=== PATIENT | male | born 1945 | race Caucasian/White ===

== ENCOUNTER 2019-09-17 17:47 | Emergency (ER) | payer MEDICARE ==
[2019-09-17 18:14] LABS: BASOPHILS # (AUTO) 0.1 10^3/uL (0.0-0.1); BASOPHILS % (AUTO) 0.5 %; EOSINOPHILS # (AUTO) 0.1 10^3/uL (0.0-0.7); EOSINOPHILS % (AUTO) 0.9 %; LYMPHOCYTES # (AUTO) 1.1 10^3/uL (1.5-3.5); LYMPHOCYTES % (AUTO) 9.1 %; MEAN CORPUSCULAR HEMOGLOBIN 30.4 pg (27.0-31.0); MEAN CORPUSCULAR HGB CONC 33.6 g/dL (32.0-36.0); MEAN CORPUSCULAR VOLUME 90.5 fL (80.0-94.0); MEAN PLATELET VOLUME 8.8 fL (7.4-11.4); MONOCYTES # (AUTO) 0.7 10^3/uL (0.0-1.0); MONOCYTES % (AUTO) 5.6 %; NEUTROPHILS # (AUTO) 10.2 10^3/uL (1.5-6.6); NEUTROPHILS % (AUTO) 83.2 %; PLT - PLATELET COUNT 227 10^3/uL (130-450); RED BLOOD COUNT 5.26 10^6/uL (4.70-6.10); RED CELL DISTRIBUTION WIDTH 12.9 % (12.0-15.0); WHITE BLOOD COUNT 12.3 x10^3/uL (4.8-10.8)
[2019-09-17 18:21] LABS: BILIRUBIN,URINE NEGATIVE (NEGATIVE); GLUCOSE, URINE (UA) NEGATIVE (NEGATIVE); KETONES,URINE (UA) NEGATIVE (NEGATIVE); LEUKOCYTE ESTERASE, URINE NEGATIVE (NEGATIVE); NITRITE,URINE NEGATIVE (NEGATIVE); OCCULT BLOOD,URINE LARGE (NEGATIVE); PROTEIN,URINE TRACE mg/dL (NEGATIVE); UROBILINOGEN,URINE 0.2 (NORMAL) E.U./dL (NORMAL)
[2019-09-17] MEDS ORDERED: SODIUM CHLORIDE 0.9% 1,000 ML IV ONE (18:21)
[2019-09-17] MEDS ORDERED: KETOROLAC 30 MG/ML VIAL IVP STA (18:21)
[2019-09-17 18:24] LABS: CLARITY,URINE CLEAR (CLEAR)
[2019-09-17 18:29] LABS: ALBUMIN/GLOBULIN RATIO 1.7 (1.0-2.2); BILIRUBIN,TOTAL 1.2 mg/dL (0.2-1.0); CALCIUM 8.9 mg/dL (8.5-10.3)
[2019-09-17 18:30] LABS: BACTERIA,URINE None Seen /HPF (None Seen); MUCUS,URINE Few Strands; SQUAMOUS EPITHELIAL CELL,UR NONE SEEN (<= Few)
[2019-09-17] MEDS ORDERED: IOVERSOL 320 100 ML VIAL IVP ONE ×2 (18:44→19:04)
[2019-09-17 20:02] VITALS: BP 172/92
--- NOTE | 2019-09-17 20:04 | CT Report ---
Reason: LLQ abd pain Procedure Date: 09/17/2019 Accession Number: [id number] / [id number] Procedure: CT - Abdomen/Pelvis W CPT Code: Final Report FULL RESULT: EXAM: CT ABDOMEN AND PELVIS EXAM DATE: 09/17/2019 07:03 PM. CLINICAL HISTORY: Left lower quadrant abdominal pain. COMPARISONS: ABDOMEN LIMITED 04/09/2016 2:02 AM. TECHNIQUE: Routine helical CT imaging was performed through the abdomen and pelvis. IV contrast: Optiray 320 90 mL. Enteric contrast: No. Reconstructions: Coronal and sagittal. In accordance with CT protocol optimization, one or more of the following dose reduction techniques were utilized for this exam: automated exposure control, adjustment of mA and/or KV based on patient size, or use of iterative reconstructive technique. FINDINGS: Lung Bases: Small hiatal hernia. Minimal dependent atelectasis. Liver: Multiple subcentimeter low-attenuation lesions throughout the liver which are too small to characterize likely represents cysts. Gallbladder/Bile Ducts: Unremarkable. Spleen: Normal. Pancreas: Fatty infiltration of the pancreas. Adrenal Glands: Normal. Kidneys: Right kidney unremarkable. Two nonobstructing stones in the lower pole of the left kidney with the larger stone measuring 9 x 5 mm in the axial plane. Obstructing stone in the proximal left ureter located approximately 4 cm downstream from the left ureteropelvic junction and measuring approximately 4 x 6 mm in the axial and craniocaudal dimensions respectively. This is associated with mild left-sided hydronephrosis. Peritoneal Cavity/Bowel: Normal caliber of the small bowel without evidence of obstruction. No focal bowel wall thickening or inflammation. Sigmoid colon diverticulosis without CT evidence of acute diverticulitis. Appendix: The appendix is well visualized and normal. Pelvic Organs: Diffuse urinary bladder wall thickening. Brachytherapy changes at the level of the prostate. Vasculature: No aneurysms or other significant abnormality. Bones: No significant abnormality. Other: Fat-containing right inguinal hernia. IMPRESSION: 1. Obstructing stone in the proximal left ureter approximately 4 cm downstream from the left ureteropelvic junction. The stone measures 4 x 6 mm in the axial and craniocaudal dimensions respectively and is associated with mild left-sided hydronephrosis. 2. Nonobstructing stones in the lower pole of the left kidney with the larger stone measuring 9 x 5 mm in the axial plane. 3. Multiple subcentimeter low-attenuation lesions throughout the liver which are too small to characterize likely represents cysts. 4. Sigmoid colon diverticulosis without CT evidence of acute diverticulitis. 5. Diffuse urinary bladder wall thickening which can be seen with cystitis. 6. Brachytherapy changes in the prostate region. 7. Small hiatal hernia. RADIA
--- NOTE | 2019-09-17 20:10 | ED Physician Documentation ---
PD HPI ABD PAIN - Stated complaint Stated Complaint: LOW LEFT AB PX - Chief complaint Chief Complaint: Abd Pain - History obtained from History obtained from: Patient, Family - History of Present Illness Timing - onset: How many hours ago (3) Timing - duration: Hours (3) Timing - details: Abrupt onset Pain level max: 8 Pain level now: 6 Quality: Aching, Pain Location: Other (L flank) Radiation: Other (non-radiating) Associated symptoms: No: Fever Similar symptoms before: Diagnosis (kidney stones) Recently seen: Not recently seen Review of Systems Constitutional: denies: Fever, Chills Throat: denies: Sore throat GI: denies: Vomiting, Diarrhea Skin: denies: Rash Musculoskeletal: denies: Neck pain, Back pain Neurologic: denies: Headache PD PAST MEDICAL HISTORY - Past Medical History Past Medical History: Yes Cardiovascular: High cholesterol Respiratory: COPD Neuro: None Endocrine/Autoimmune: None GI: Cholelithiasis : None HEENT: Chronic vision loss, Chronic hearing loss Psych: None Musculoskeletal: None Derm: None - Past Surgical History Past Surgical History: Yes General: Cholecystectomy - Present Medications Home Medications: Ambulatory Orders Medication Instructions Recorded Confirmed Albuterol Sulfate [Proair Hfa] 04/09/16 Simvastatin 04/09/16 Hydrocodone/Acetaminophen 1 - 2 each PO Q6H PRN #14 tablet 09/17/19 [Hydrocodon-Acetaminophen 5-325] Ondansetron Odt [Zofran] 4 mg TL Q6H PRN #10 tablet 09/17/19 Tamsulosin [Flomax] 0.4 mg PO DAILY #20 capsule 09/17/19 - Allergies Allergies/Adverse Reactions: Allergies Allergy/AdvReac Type Severity Reaction Status Date / Time No Known Drug Allergies Allergy Verified 04/09/16 13:54 - Social History Does the pt smoke?: No Smoking Status: Never smoker Does the pt drink ETOH?: No Does the pt have substance abuse?: No - Immunizations Immunizations are current?: Yes - POLST Patient has POLST: No PD ED PE NORMAL - Vitals Vital signs reviewed: Yes - General General: Alert and oriented X 3, No acute distress, Well developed/nourished - HEENT HEENT: PERRL, Moist mucous membranes - Neck Neck: Supple, no meningeal sign - Cardiac Cardiac: RRR, Strong equal pulses - Respiratory Respiratory: No respiratory distress, Clear bilaterally - Abdomen Abdomen: Soft, Non distended, Other (Tender to palpation left lower quadrant. No peritoneal signs.) - Back Back: No CVA TTP - Derm Derm: Warm and dry - Extremities Extremities: No edema - Neuro Neuro: Alert and oriented X 3 - Psych Psych: Normal mood, Normal affect Results - Vitals Vitals: Vital Signs - 24 hr 09/17/19 09/17/19 17:52 20:02 Temperature 36.4 C L 37 C Heart Rate 75 84 Respiratory 14 16 Rate Blood Pressure 153/118 H 172/92 H O2 Saturation 97 93 Oxygen O2 Source Room air - Labs Labs: Laboratory Tests 09/17/19 09/17/19 09/17/19 18:08 18:08 18:10 WBC 12.3 H RBC 5.26 Hgb 16.0 Hct 47.6 MCV 90.5 MCH 30.4 MCHC 33.6 RDW 12.9 Plt Count 227 MPV 8.8 Neut # (Auto) 10.2 H Lymph # (Auto) 1.1 L [place] # (Auto) 0.7 Eos # (Auto) 0.1 Baso # (Auto) 0.1 Absolute Nucleated RBC 0.00 Nucleated RBC % 0.0 Sodium 140 Potassium 3.9 Chloride 103 Carbon Dioxide 28 Anion Gap 9.0 BUN 20 Creatinine 1.0 Estimated GFR (MDRD) 73 L Glucose 124 H Calcium 8.9 Total Bilirubin 1.2 H AST 23 ALT 26 Alkaline Phosphatase 56 Total Protein 8.0 Albumin 5.0 Globulin 3.0 Albumin/Globulin Ratio 1.7 Lipase 24 Urine Color YELLOW Urine Clarity CLEAR Urine pH 5.0 Ur Specific [place] >=1.030 H Urine Protein TRACE Urine Glucose (UA) NEGATIVE Urine Ketones NEGATIVE Urine Occult Blood LARGE H Urine Nitrite NEGATIVE Urine Bilirubin NEGATIVE Urine Urobilinogen 0.2 (NORMAL) Ur Leukocyte Esterase NEGATIVE Urine RBC 11-25 H Urine WBC 4-5 Ur Squamous Epith Cells NONE SEEN Urine Bacteria None Seen Urine Mucus Few Strands Ur Microscopic Review INDICATED Urine Culture Comments NOT INDICATED - Rads (name of study) CT abdomen pelvis Radiology: Prelim report reviewed, EMP read contemporaneously, See rad report (1. Obstructing stone in the proximal left ureter approximately 4 cm downstream from the left ureteropelvic junction. The stone measures 4 x 6 mm in the axial and craniocaudal dimensions respectively and is associated with mild left-sided hydronephrosis. 2. Nonobstructing stones in the lower pole of the left kidney with the larger stone measuring 9 x 5 mm in the axial plane. 3. Multiple subcentimeter low-attenuation lesions throughout the liver which are too small to characterize likely represents cysts. 4. Sigmoid colon diverticulosis without CT evidence of acute diverticulitis. 5. Diffuse urinary bladder wall thickening which can be seen with cystitis. 6. Brachytherapy changes in the prostate region. 7. Small hiatal hernia. ) PD MEDICAL DECISION MAKING - ED course Complexity details: reviewed results, re-evaluated patient, considered differential, d/w patient, d/w family ED course: Pain well controlled in the emergency department. Patient is well-appearing, nontoxic. Afebrile. Will place on Flomax and pain medication for home. Patient has a left-sided ureteral stone. Patient counseled regarding signs and symptoms for which I believe and urgent re-evaluation would be necessary. Patient with good understanding of and agreement to plan and is comfortable going home at this time This document was made in part using voice recognition software. While efforts are made to proofread this document, sound alike and grammatical errors may occur. Departure - Departure Disposition: Home, Self Care Clinical Impression: Left ureteral stone Condition: Good Instructions: ED Stone Renal W Colic Follow-Up: Provider,Other [Primary Care Provider] - Within 1 week Prescriptions: Hydrocodone/Acetaminophen [Hydrocodon-Acetaminophen 5-325] 1 - 2 each PO Q6H PRN #14 tablet PRN Reason: pain Ondansetron Odt [Zofran] 4 mg TL Q6H PRN #10 tablet PRN Reason: Nausea / Vomiting Tamsulosin [Flomax] 0.4 mg PO DAILY #20 capsule Comments: Drink plenty of water at home. You can use Motrin or Aleve for pain as well. Follow-up with your doctor for further care. You may want to see a urologist as well. Do not drink alcohol or drive while on narcotic pain medicine. Note that many narcotic pain relievers also contain tylenol/acetaminophen. Please ensure that your total dose of acetaminophen from all sources does not exceed 3 grams (3000mg) per day. You may constipated on this medication, take a stool softener such as "Colace" twice a day while you are on it. Also recommend a ulza-lec-rypebvm laxative such as senna or MiraLAX any day that you do not have a bowel movement. If you received narcotic pain medication in the emergency department, do not drive or operate machinery for the next 24 hours. 1. Obstructing stone in the proximal left ureter approximately 4 cm downstream from the left ureteropelvic junction. The stone measures 4 x 6 mm in the axial and craniocaudal dimensions respectively and is associated with mild left-sided hydronephrosis. 2. Nonobstructing stones in the lower pole of the left kidney with the larger stone measuring 9 x 5 mm in the axial plane. 3. Multiple subcentimeter low-attenuation lesions throughout the liver which are too small to characterize likely represents cysts. 4. Sigmoid colon diverticulosis without CT evidence of acute diverticulitis. 5. Diffuse urinary bladder wall thickening which can be seen with cystitis. 6. Brachytherapy changes in the prostate region. 7. Small hiatal hernia. Discharge Date/Time: 09/17/19 20:36
== END 2019-09-17 20:36 | disposition home or self-care (01) ==
LOC: ED 17:47
DX: N13.2 Hydronephrosis with renal and ureteral calculous obstruction (principal); K76.9 Liver disease, unspecified; K44.9 Diaphragmatic hernia without obstruction or gangrene
CPT/HCPCS: 36415; 74177; 80053; 81001; 83690; 85025; 96374; 99284; Q9967; 81003; 87086

== ENCOUNTER 2022-05-13 07:11 | Outpatient (CLI) | payer MEDICARE, OTHER ==
[2022-05-13 14:21] LABS: BASOPHILS % (AUTO) 0.6 %; EOSINOPHILS # (AUTO) 0.2 10^3/uL (0.0-0.7); EOSINOPHILS % (AUTO) 3.7 %; HCT - HEMATOCRIT 44.6 % (42.0-52.0); LYMPHOCYTES # (AUTO) 1.1 10^3/uL (1.5-3.5); LYMPHOCYTES % (AUTO) 16.1 %; MEAN CORPUSCULAR HEMOGLOBIN 31.4 pg (27.0-31.0); MEAN CORPUSCULAR HGB CONC 33.6 g/dL (32.0-36.0); MEAN CORPUSCULAR VOLUME 93.5 fL (80.0-94.0); MEAN PLATELET VOLUME 9.6 fL (7.4-11.4); MONOCYTES # (AUTO) 0.5 10^3/uL (0.0-1.0); MONOCYTES % (AUTO) 7.2 %; NEUTROPHILS # (AUTO) 4.7 10^3/uL (1.5-6.6); NEUTROPHILS % (AUTO) 72.1 %; PLT - PLATELET COUNT 223 10^3/uL (130-450); RED BLOOD COUNT 4.77 10^6/uL (4.70-6.10); RED CELL DISTRIBUTION WIDTH 13.1 % (12.0-15.0); WHITE BLOOD COUNT 6.5 x10^3/uL (4.8-10.8)
[2022-05-13 15:01] LABS: ALBUMIN 4.3 g/dL (3.2-5.5); ALBUMIN/GLOBULIN RATIO 1.5 (1.0-2.2); BILIRUBIN,TOTAL 1.3 mg/dL (0.2-1.0); CALCIUM 9.5 mg/dL (8.5-10.3); CREATININE 0.9 mg/dL (0.6-1.2); TOTAL PROTEIN 7.2 g/dL (6.7-8.2)
== END 2022-05-13 07:12 | disposition home or self-care (01) ==
LOC: LAB.S 07:11
PROVIDERS: ATTEND Nurse Practitioner Family
DX: Z86.010 Personal history of colon polyps (principal)
CPT/HCPCS: 36415; 80053; 85025

== ENCOUNTER 2024-01-03 11:20 | Emergency (ER) | payer OTHER ==
[2024-01-03 11:38] VITALS: BP 130/90; O2SAT 96
--- NOTE | 2024-01-03 11:55 | ED Physician Documentation ---
PD HPI UPPER EXT INJURY - Stated complaint Stated Complaint: WATER ON R ELBOW - Chief complaint Chief Complaint: Ext Problem - History obtained from History obtained from: Patient (He hit his elbow 3 weeks ago and it has been swelling really not bothering him though. 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 and encouraged him to go to the hospital.) PD PAST MEDICAL HISTORY - Past Medical History Past Medical History: Yes Cardiovascular: High cholesterol Respiratory: COPD Neuro: None Endocrine/Autoimmune: None GI: Cholelithiasis : None HEENT: Chronic vision loss, Chronic hearing loss Psych: None Musculoskeletal: None Derm: None - Past Surgical History Past Surgical History: Yes General: Cholecystectomy - Present Medications Home Medications: Ambulatory Orders Medication Instructions Recorded Confirmed Albuterol Sulfate [Proair Hfa] 04/09/16 Atorvastatin [Lipitor] 10 mg DAILY 03/28/20 03/28/20 Budesonide/Formoterol Fumarate 0 mg DAILY 03/28/20 03/28/20 [Symbicort 160-4.5 Mcg Inhaler] Neomycin/Polymyx/Hc Otic Drops 4 drops OT TID 7 Days #1 bottle 03/28/20 [Cortisporin Ear Susp] - Allergies Allergies/Adverse Reactions: Allergies Allergy/AdvReac Type Severity Reaction Status Date / Time No Known Drug Allergies Allergy Verified 01/03/24 11:28 - Social History Does the pt smoke?: No Smoking Status: Never smoker Does the pt drink ETOH?: No Does the pt have substance abuse?: No - Immunizations Immunizations are current?: Yes - POLST Patient has POLST: No PD ED PE NORMAL - Vitals Vital signs reviewed: Yes - General General: Alert and oriented X 3, No acute distress - Extremities Extremities: Other (He has nontender fluctuance noncellulitic olecranon bursitis on the right with full range of motion and no bony tenderness.) - Neuro Neuro: Alert and oriented X 3, Normal speech Results - Vitals Vitals: Vital Signs - 24 hr 01/03/24 11:29 Temperature 36.8 C Heart Rate 100 Respiratory 16 Rate Blood Pressure 130/90 H O2 Saturation 96 Oxygen O2 Source Room air PD Medical Decision Making - ED course ED course: He has nonseptic olecranon traumatic bursitis. No evidence of fracture. Full range of motion. No evidence of infection. We discussed needle aspiration, but I did not recommend it since the patient is minimally symptomatic and would put him at risk for infection. Departure - Departure Disposition: 01 Home, Self Care Clinical Impression: Olecranon bursitis, right elbow Condition: Good Record reviewed to determine appropriate education?: Yes Instructions: ED Bursitis Elbow Olecranon Follow-Up: [facility]opedic Care [Provider Group] Comments: You were seen today for right olecranon bursitis. This is a condition where some fluid is in the bursa over the elbow. It does not look infected and therefore I do not recommend drainage at this point. If it really starts to bother you could you can follow-up with our orthopedic clinic for further evaluation and treatment, but at this point it is okay to just wrap it with a not to tight [place] wrap and try to avoid hitting it on things. Return if worse.
== END 2024-01-03 12:07 | disposition home or self-care (01) ==
LOC: ED 11:20
DX: M70.21 Olecranon bursitis, right elbow (principal); W22.8XXA Striking against or struck by other objects, initial encounter
CPT/HCPCS: 99282; 99283

== ENCOUNTER 2024-06-22 06:17 | Emergency (ER) | payer MEDICARE, OTHER ==
[2024-06-22 07:11] LABS: BASOPHILS # (AUTO) 0.1 10^3/uL (0.0-0.1); BASOPHILS % (AUTO) 0.4 %; EOSINOPHILS # (AUTO) 0.1 10^3/uL (0.0-0.7); EOSINOPHILS % (AUTO) 0.4 %; HCT - HEMATOCRIT 46.4 % (42.0-52.0); HGB - HEMOGLOBIN 16.2 g/dL (14.0-18.0); LYMPHOCYTES % (AUTO) 5.8 %; MEAN CORPUSCULAR HEMOGLOBIN 31.4 pg (27.0-31.0); MEAN CORPUSCULAR HGB CONC 34.9 g/dL (32.0-36.0); MEAN CORPUSCULAR VOLUME 89.9 fL (80.0-94.0); MONOCYTES # (AUTO) 1.1 10^3/uL (0.0-1.0); MONOCYTES % (AUTO) 6.8 %; NEUTROPHILS % (AUTO) 86.2 %; PLT - PLATELET COUNT 240 10^3/uL (130-450); RED BLOOD COUNT 5.16 10^6/uL (4.70-6.10); RED CELL DISTRIBUTION WIDTH 13.1 % (12.0-15.0); WHITE BLOOD COUNT 16.3 x10^3/uL (4.8-10.8)
[2024-06-22 07:16] LABS: ALBUMIN 4.3 g/dL (3.2-5.5); ALBUMIN/GLOBULIN RATIO 1.6 (1.0-2.2); ALKALINE PHOSPHATASE 72 IU/L (42-121); ALT ALANINE AMINOTRANSFERASE 23 IU/L (10-60); AST ASPARTATE AMINOTRANSFERASE 18 IU/L (10-42); BILIRUBIN,TOTAL 1.5 mg/dL (0.2-1.0); BUN - BLOOD UREA NITROGEN 19 mg/dL (6-20); CALCIUM 9.6 mg/dL (8.5-10.3); CARBON DIOXIDE - CO2 26 mmol/L (21-32); CHLORIDE 102 mmol/L (101-111); CREATININE 1.6 mg/dL (0.6-1.3); GFR - MDRD 42 (>89); GLUCOSE 156 mg/dL (74-104); LIPASE < 10 U/L (11-82); SODIUM 136 mmol/L (135-145)
--- NOTE | 2024-06-22 07:25 | ED Physician Documentation ---
PD HPI ABD PAIN - Stated complaint Stated Complaint: LT SIDE PX - Chief complaint Chief Complaint: Abd Pain - History obtained from History obtained from: Patient - History of Present Illness Radiation: Left flank Improved by: No: Eating, Laying still Worsened by: No: Eating, Moving Associated symptoms: Nausea. No: Fever, Vomiting, Diarrhea, Dysuria Similar symptoms before: Diagnosis (He has had couple of kidney stones in the past. One of them was large and required lithotripsy perhaps 20 years ago.) Recently seen: Not recently seen Review of Systems Constitutional: denies: Fever, Chills PD PAST MEDICAL HISTORY - Past Medical History Past Medical History: Yes Cardiovascular: High cholesterol Respiratory: COPD Neuro: None Endocrine/Autoimmune: None GI: Cholelithiasis : Kidney stones HEENT: Chronic vision loss, Chronic hearing loss Psych: None Musculoskeletal: None Derm: None - Past Surgical History Past Surgical History: Yes General: Cholecystectomy - Present Medications Home Medications: Ambulatory Orders Medication Instructions Recorded Confirmed Albuterol Sulfate [Proair Hfa] 2 puffs IH Q4HR PRN 04/09/16 06/22/24 Atorvastatin [Lipitor] 10 mg DAILY 03/28/20 06/22/24 Budesonide/Formoterol Fumarate 0 mg DAILY 03/28/20 06/22/24 [Symbicort 160-4.5 Mcg Inhaler] Neomycin/Polymyx/Hc Otic Drops 4 drops OT TID 7 Days #1 bottle 03/28/20 [Cortisporin Ear Susp] Docusate Sodium 100Mg Capsule 100 mg PO DAILY #15 cap 06/22/24 [Colace 100Mg Capsule] Meloxicam [Mobic] 7.5 mg PO BID 10 Days #20 tablet 06/22/24 Ondansetron Odt [Zofran] 4 mg TL Q6H PRN #10 tablet 06/22/24 oxyCODONE [Roxicodone] 5 mg PO Q4H PRN #20 tablet 06/22/24 - Allergies Allergies/Adverse Reactions: Allergies Allergy/AdvReac Type Severity Reaction Status Date / Time No Known Drug Allergies Allergy Verified 06/22/24 06:35 - Social History Does the pt smoke?: No Smoking Status: Never smoker Does the pt drink ETOH?: No Does the pt have substance abuse?: No - Immunizations Immunizations are current?: Yes - POLST Patient has POLST: No PD ED PE NORMAL - Vitals Vital signs reviewed: Yes - General General: Alert and oriented X 3, Well developed/nourished - Abdomen Abdomen: Soft, Non tender, Non distended - Male Male : Deferred - Back Back: Other (moderate left flank tender to percussion) Results - Vitals Vitals: Vital Signs - 24 hr 06/22/24 06/22/24 06:28 07:40 Temperature 36.9 C Heart Rate 110 H 99 Respiratory 18 16 Rate Blood Pressure 103/65 105/67 O2 Saturation 95 96 Oxygen O2 Source Room air - Labs Labs: Laboratory Tests 06/22/24 06/22/24 06:50 06:50 WBC 16.3 H RBC 5.16 Hgb 16.2 Hct 46.4 MCV 89.9 MCH 31.4 H MCHC 34.9 RDW 13.1 Plt Count 240 MPV 9.0 Neut # (Auto) 14.0 H Lymph # (Auto) 1.0 L [place] # (Auto) 1.1 H Eos # (Auto) 0.1 Baso # (Auto) 0.1 Absolute Nucleated RBC 0.00 Nucleated RBC % 0.0 Sodium 136 Potassium 4.0 Chloride 102 Carbon Dioxide 26 Anion Gap 8.0 BUN 19 Creatinine 1.6 H Estimated GFR (MDRD) 42 L Glucose 156 H Calcium 9.6 Total Bilirubin 1.5 H AST 18 ALT 23 Alkaline Phosphatase 72 Total Protein 7.0 Albumin 4.3 Globulin 2.7 Albumin/Globulin Ratio 1.6 Lipase < 10 L - Rads (name of study) abd/pelvic \CT Relevant Findings:: Prelim report reviewed, EMP independent interpretation of test (large stone at UVJ 1.4 x 1.2 x 0.8 cm. Moderate hydronephrosis. ) PD Medical Decision Making - ED course Complexity details: reviewed results (Kidney stone present on CT scan that is large in the proximal ureter. This is undoubtedly not going to pass on its own. His pain is improved reasonably so could be done outpatient. I talked with Dr. Cooper who can see the patient tomorrow in the office.), considered differential (His pain sounds typical for kidney stone. Other consideration would be vascular or diverticular or kidney infection. Given IV fluids with pain medicines of Toradol and Dilaudid and antiemetic of Zofran. This provided quite a bit of improvement of his pain to just a mild level.), d/w patient, d/w workforce management consultant (Urology) Reviewed Lab Results: Renal function is up a little at 1.6 creatinine. This is above most recent baseline a 1-1/2 years ago. However not too elevated. Departure - Departure Condition: Stable Record reviewed to determine appropriate education?: Yes Instructions: ED Stone Renal W Colic Follow-Up: Sergio Cooper MD [Provider Admit Priv/Credential] - Prescriptions: Docusate Sodium 100Mg Capsule [Colace 100Mg Capsule] 100 mg PO DAILY #15 cap Meloxicam [Mobic] 7.5 mg PO BID 10 Days #20 tablet oxyCODONE [Roxicodone] 5 mg PO Q4H PRN #20 tablet PRN Reason: Pain Ondansetron Odt [Zofran] 4 mg TL Q6H PRN #10 tablet PRN Reason: Nausea / Vomiting Comments: You do have a large kidney stone in the upper ureter on the left. It measures 1.4 x 1.26 cm. This is certainly very unlikely to pass on its own. I did talk with our urologist, Dr. Cooper, who agrees and will expedite seeing you. You should hear from their office today for an appointment for tomorrow with plan to work on eliminating the stone possibly even as early as next week. In the meantime preemptively try to help with the pain with anti-inflammatory and regular Tylenol 500 to 650 mg 4 times a day. To that add ondansetron if needed for nausea and oxycodone every 4-6 hours if needed for pain. Add us daily daily stool softener as well. Activity as tolerated. Continue usual medicines. No aspirin for now. Stay well-hydrated. Return to the ER if uncontrolled pain despite the prescription medication. If you have not heard from Dr. Cooper's office by early afternoon or so then contact them to confirm appointment time for tomorrow. I sent your prescriptions to [facility] in [place]. I am prescribing a short course of narcotic pain medication for you. These are potentially dangerous and addictive medications that should be used carefully. These medications may constipate you. Take an gmfj-lhc-eljafnw stool softener such as docusate twice daily with plenty of water while taking these medications. If you go 24 hours without a bowel movement, take [id number] MiraLAX, per package instructions. Do not drink or drive while taking these medications. If you received narcotic or sedating medications while in the emergency department do not drive for 24 hours. Store this medication in a safe, secure place and out of reach of children. It is a violation of federal law to give or sell this medication to another person or to use in a manner other than prescribed. The ED will not refill narcotic prescriptions, including prescriptions lost or stolen. You can dispose of unwanted medications at the [facility]'s office or at several pharmacies such as [facility]. Forms: PCP List
[2024-06-22] MEDS ORDERED: iohexoL-300 100 ML VIAL ONE (07:47)
[2024-06-22] MEDS: HYDROmorphone 1 MG/ML CARPUJECT IVP STA (07:56)
[2024-06-22] MEDS: KETOROLAC 15 MG/ML VIAL IVP STA (07:57)
[2024-06-22] MEDS: SODIUM CHLORIDE 0.9% 1,000 ML IV STA (07:58)
[2024-06-22] MEDS: iohexoL-300 100 ML VIAL IVP ONE (08:30)
--- NOTE | 2024-06-22 08:43 | CT Report ---
PROCEDURE: Abdomen/Pelvis W INDICATIONS: left lower abd pain x 1 day CONTRAST: Omni 300 100ml TECHNIQUE: After the administration of intravenous contrast, a CT scan of the abdomen and pelvis was performed. Images were recorded and evaluated at appropriate window settings. Reformats: coronal and sagittal. F or radiation dose reduction, the following was used: automated exposure control, adjustment of mA and /or kV according to patient size. COMPARISON: 08/17/2019 FINDINGS: Image quality: Diagnostic. Lower chest: Unremarkable. Liver: No solid mass. Gallbladder: Surgically absent Biliary tree: No intrahepatic or extrahepatic dilation, accounting for age. Spleen: No splenomegaly. Pancreas: Calcifications of chronic pancreatitis. Marked atrophy of the pancreas. The pancreatic duct is obstructed by a pancreatic duct stone and is dilated. Adrenals: No adrenal nodule. Kidneys and ureters: There is a sizable stone obstructing the left UPJ. This stone measures approxima tely 1.4 x 1.2 x 0.8 cm. It results in a delayed nephrogram and moderate hydronephrosis. There are bi lateral nonobstructing renal stones. There is no right hydronephrosis. Stomach, bowel and peritoneum: No gastric or small bowel dilation. No abnormal wall thickening. No pa thologic free fluid. Diverticulosis without evidence of diverticulitis. Lymph nodes: No central or retroperitoneal adenopathy. Vessels: No infrarenal aortic aneurysm. Patent portal vein. PELVIS Reproductive organs: Prostate implant seeds. Prostate is shrunken. Bladder: No abnormal wall thickening, accounting for underdistention. Pelvic lymph nodes: No pelvic adenopathy by size criteria. Bones: No aggressive osseous abnormality. Other: Fat-containing right inguinal hernia. IMPRESSION: 1. A large stone obstructs the left UPJ, resulting in moderate left hydronephrosis and a delayed neph rogram. 2. Bilateral nonobstructing renal stones. 3. There is a stone obstructing the pancreatic duct, which is dilated. The pancreas has undergone mar ked fatty atrophy. There are changes of chronic pancreatitis. 4. Treated prostate carcinoma. 5. Fat-containing right inguinal hernia. 6. Diverticulosis. Reviewed by: Otis Walters MD on 06/22/2024 8:42 AM PDT Approved by: Otis Walters MD on 06/22/2024 8:42 AM PDT Station ID: [id number]
[2024-06-22 09:37] VITALS: BP 154/70; O2SAT 94
== END 2024-06-22 09:27 | disposition home or self-care (01) ==
LOC: ED 06:17
DX: N13.2 Hydronephrosis with renal and ureteral calculous obstruction (principal); Z87.442 Personal history of urinary calculi
CPT/HCPCS: 36415; 74177; 80053; 83690; 85025; 96374; 96375; 99284; J1170; Q9967

== ENCOUNTER 2024-06-26 07:01 | Day surgery (SDC) | payer MEDICARE ==
[2024-06-26] MEDS ORDERED: ceFAZolin 2 GM VIAL ONE (07:38)
[2024-06-26] MEDS: LACTATED RINGERS 1,000 ML IV ONE ×3 (07:50→11:47)
--- NOTE | 2024-06-26 08:19 | ANESTHESIA ---
Pre-Anesthesia VS, & Labs - Diagnosis LEFT KIDNEY STONE - Procedure EXTRACORPOREAL SHOCK WAVE LITHOTRIPSY Vital Signs: Temp Pulse Resp BP Pulse Ox O2 Flow Rate 36.9 C 99 18 157/94 H 99 06/26/24 07:51 06/26/24 07:51 06/26/24 07:51 06/26/24 07:51 06/26/24 07:51 Height: 5 ft 9 in Weight (kg): 94 kg Body Mass Index: 30.6 BMI Classification: Obese - NPO >8 hours Home Medications and Allergies Home Medications: Ambulatory Orders Cholecalciferol (Vitamin D3) [Vitamin D3] 1,250 mcg PO DAILY 06/23/24 Loratadine [Claritin] 10 mg PO PRN PRN 06/23/24 oxyCODONE [Roxicodone] 5 mg PO PRN PRN 06/26/24 Albuterol Sulfate [Proair Hfa] 2 puffs IH Q4HR PRN 04/09/16 Atorvastatin [Lipitor] 10 mg PO DAILY 03/28/20 Budesonide/Formoterol Fumarate [Symbicort 160-4.5 Mcg Inhaler] 0 mg IH DAILY 03/28/20 Cholecalciferol (Vitamin D3) [Vitamin D3] 1,250 mcg PO DAILY 06/23/24 Loratadine [Claritin] 10 mg PO PRN PRN 06/23/24 oxyCODONE [Roxicodone] 5 mg PO PRN PRN 06/26/24 Allergies/Adverse Reactions: Allergies Allergy/AdvReac Type Severity Reaction Status Date / Time No Known Drug Allergies Allergy Verified 06/22/24 06:35 Anes History & Medical History - Anesthetic History Anesthesia Complications: reports: No previous complications Family history of Anesthesia Complications: Denies Family history of Malignant Hyperthermia: Denies - Medical History Cardiovascular: reports: High cholesterol Pulmonary: reports: COPD Gastrointestinal: reports: Cholelithiasis Urinary: reports: Kidney stones Neuro: reports: None Musculoskeletal: reports: None Endocrine/Autoimmune: reports: None Blood Disorders: reports: None Skin: reports: None Smoking Status: Never smoker Psychosocial: reports: No issues indicated (QUIT DRINKING AND SMOKING 20-30+ YEARS AGO) History of Cancer?: Yes (PROSTATE; RESOLVED APROX 20 YEARS AGO; RECEIVED CHEMO AND RADIATION) - Surgical History General: reports: Cholecystectomy Urologic: reports: Prostatic surgery Results - EKG Results EKG Comparison: Reviewed EKG, Normal EKG Exam General: Alert, Oriented x3, Cooperative, No acute distress Dental: WNL Mouth Openin Fingerbreadth Neck Mobility: Normal Mallampati classification: III Thyromental Distance: 4-6 cm Mental/Cognitive Status: Alert/Oriented X3, Normal for patient Cognitive Status: Within normal limits Plan Anesthesia Type: General Consent for Procedure(s) Verified and Reviewed: Yes Code Status: Attempt Resuscitation ASA classification: 3-Severe systemic disease Is this case an emergency?: No
[2024-06-26] MEDS ORDERED: NALOXONE 0.4 MG/ML VIAL IVP PRN (10:29)
[2024-06-26] MEDS ORDERED: ePHEDrine 50 MG/ML VIAL IVP PRN (10:29)
[2024-06-26] MEDS ORDERED: fentaNYL 100 MCG/2 ML VIAL IVP PRN (10:29)
[2024-06-26] MEDS ORDERED: METOCLOPRAMIDE 10 MG/2 ML VIAL IVP PRN (10:29)
[2024-06-26] MEDS ORDERED: MORPHINE 2 MG/ML CARPUJECT IVP PRN (10:29)
[2024-06-26] MEDS ORDERED: HYDROmorphone 0.5 MG/0.5 ML SYRINGE IVP PRN (10:29)
[2024-06-26] MEDS ORDERED: ONDANSETRON 4 MG/2 ML VIAL IVP PRN ×2 (10:29→11:42)
[2024-06-26] MEDS ORDERED: ATROPINE ABBOJECT 1 MG/10 ML SYRINGE IVP PRN (10:29)
[2024-06-26] MEDS ORDERED: LIDOCAINE-PF 2% 10 ML AMP SUBQ ONE (10:33)
[2024-06-26] MEDS ORDERED: PROPOFOL 200 MG/20 ML VIAL IVP ONE (10:33)
[2024-06-26] MEDS ORDERED: ONDANSETRON 4 MG/2 ML VIAL ONE (10:46)
[2024-06-26] MEDS ORDERED: DEXAMETHASONE 4 MG/ML VIAL ONE (10:46)
[2024-06-26] MEDS ORDERED: ePHEDrine 50 MG/ML VIAL IVP ONE (10:49)
[2024-06-26] MEDS ORDERED: LACTATED RINGERS 1,000 ML IV SCH (11:00)
[2024-06-26] MEDS ORDERED: HYDROcod/ACETAM 5/325 MG TABLET PO PRN (11:42)
--- NOTE | 2024-06-26 11:46 | Discharge Plan ---
Discharge Plan Problem Reviewed?: Yes Disposition: Home, Self Care Condition: Good Prescriptions: oxyCODONE [Roxicodone] 5 mg PO Q4H PRN #10 tablet PRN Reason: Pain Diet: Regular Activity Restrictions: No Restrictions Shower Restrictions: No Driving Restrictions: No Instruction Topics: Lithotripsy Shock Wave, Stents Ureteral Additional Instructions or Follow Up instructions: You will be contacted for follow-up with Dr. Cooper in 3 to 4 weeks time. Please stop by at [facility] the day before your office visit to obtain an x-ray No Smoking: If you smoke, Please STOP! Call for help. Follow-up with: NINO PARDO MD [Primary Care Provider] - Sergio Cooper MD [Provider Admit Priv/Credential] -
[2024-06-26 12:26] VITALS: BP 136/66; O2SAT 88
--- NOTE | 2024-06-26 13:08 | ANESTHESIA POST OP EVALUATION ---
Anesthesia Post Eval - Post Anesthesia Eval Vitals: Last Vital Signs Temp 36.8 C 06/26/24 11:55 Pulse 85 06/26/24 12:15 Resp 16 06/26/24 12:15 BP 136/66 H 06/26/24 12:15 Pulse Ox 88 L 06/26/24 12:15 O2 Flow Rate CV Function Including HR & BP: Stable Pain Control: Satisfactory Nausea & Vomiting: Negative Mental Status: Baseline Respiratory Status: Airway Patent Hydration Status: Satisfactory Anesthesia Complications: None
--- NOTE | 2024-06-27 13:03 | OPERATIVE REPORT ---
Operative Report - General Procedure Date: 06/26/24 Planned Procedure: Left extracorporeal shockwave lithotripsy, flexible cystoscopy and left stent Pre-Op Diagnosis: left kidney stone Procedure Performed: Left extracorporeal shockwave lithotripsy, flexible cystoscopy and left stent Post Op Diagnosis: left kidney stone - Procedure Note Primary Surgeon: Kenneth Anesthesia Provider: COLEMAN Patrick Anesthesia Technique: General LMA Pathology: none Findings: left large stone with good fragmentation left stent placed Complications: none - Other Other Information/Narrative: After informed sent was obtained the patient brought the OR and laid in the supine position. the patient was anesthetized per anesthesia protocols and prepped and draped in usual sterile fashion in the supine position. A sharply lithotripter was placed into the left flank. Mobile Heavy Equipment Mechanic imaging was performed to identify the stone which was a large 14 mm UPJ stone on the left. A timeout was performed reconfirming the patient, procedure and laterality The lithotripter was used to send shockwaves to the stone at a rate of 1 Hz for the first few 100 Hz and then increased to 1.5 Hz for the remaining shocks. 2500 total shocks were sent. The stone showed good dissolution At the same time a flexible cystoscope was advanced per urethra into the bladder. 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 A sensor wire was placed up the left UO past the stone up into the kidney. A 6 [place] 26 cm stent was placed with good curling noted in the kidney and good curling noted in the bladder. This concluded procedure, the patient tolerated seizure well was brought back without further incident. He will follow-up in a few weeks time for x-ray and further management of his stone and stent
== END 2024-06-26 07:02 | disposition home or self-care (01) ==
LOC: SDS 07:01
PROVIDERS: ATTEND Urology
DX: N20.1 Calculus of ureter (principal); E66.9 Obesity, unspecified; Z68.30 Body mass index [BMI] 30.0-30.9, adult; J44.9 Chronic obstructive pulmonary disease, unspecified; Z87.891 Personal history of nicotine dependence
CPT/HCPCS: 50590; 52332; C2617; J7120

== ENCOUNTER 2024-07-26 07:04 | Outpatient (CLI) | payer MEDICARE ==
--- NOTE | 2024-07-26 11:12 | XRAY Report ---
PROCEDURE: Abdomen 1 V INDICATIONS: KIDNEY STONE TECHNIQUE: One view of the abdomen acquired. COMPARISON: None. FINDINGS: Surgical changes and devices: Left-sided nephro ureteral stent present. Cholecystectomy clips. Bowel: Bowel gas pattern is normal. Soft tissues: No suspicious abdominal calcifications. Visualized solid organ contours appear normal in size. 8 mm and 3 mm stones project over the inferior calyx of the left kidney. Bones: No suspicious bony lesions. IMPRESSION: 8 mm and 3 mm stones project over the inferior calyx of the left kidney. Left-sided nephroureteral st ent in place. Reviewed by: Vaughn Caballero MD on 07/26/2024 11:11 AM PDT Approved by: Vaughn Caballero MD on 07/26/2024 11:11 AM PDT Station ID: [id number]
== END 2024-07-26 07:05 | disposition home or self-care (01) ==
LOC: DI 07:04
PROVIDERS: ATTEND Urology
DX: N20.0 Calculus of kidney (principal)